=== PATIENT | male | born 1950 | race Caucasian/White ===

== ENCOUNTER 2019-04-23 13:07 | Emergency (ER) | payer MEDICARE, BC ==
[2019-04-23 13:27] VITALS: BP 156/81
--- NOTE | 2019-04-23 13:45 | UC ---
Knee Pain HPI - HPI Summary HPI Summary: Pt was playing golf yesterday and he swung the club and twisted his left knee and had immediate pain. He does not feel like his knee is going to give out and he is walking but with pain and slowly. - History of Current Complaint Chief Complaint: UCLowerExtremity Stated Complaint: LEFT KNEE INJURY Time Seen by Provider: 04/23/19 13:15 Hx Obtained From: Patient Onset/Duration: Sudden Onset, Still Present Severity Initially: Mild Severity Currently: Mild Pain Intensity: 8 Character: Dull, Aching Aggravating Factor(s): Movement, Weight Bearing Alleviating Factor(s): Nothing Associated Signs And Symptoms: Positive: Negative Able to Bear Weight: Yes - Allergies/Home Medications Allergies/Adverse Reactions: Allergies Allergy/AdvReac Type Severity Reaction Status Date / Time codeine Allergy Hallucinati Verified 04/23/19 13:29 ons omeprazole Allergy Coughing Verified 04/23/19 13:29 Home Medications: Home Medications Acetaminophen [Acetaminophen Extra Strength] 1,000 mg PO Q6H PRN 04/23/19 [ History Confirmed 04/23/19] Atorvastatin* [Lipitor*] 80 mg PO 1700 04/23/19 [History Confirmed 04/23/19] Chromium Picolinate 400 mcg PO DAILY 04/23/19 [History Confirmed 04/23/19] Clopidogrel TAB* [Plavix TAB*] 75 mg PO DAILY 04/23/19 [History Confirmed ] Esomeprazole Magnesium [Nexium 24Hr] 20 mg PO DAILY 04/23/19 [History Confirmed 04/23/19] Garlic 580 mg PO DAILY 04/23/19 [History Confirmed 04/23/19] Ibuprofen TAB* [Advil TAB*] 400 mg PO Q6H PRN 04/23/19 [History Confirmed ] PMH/Surg Hx/FS Hx/Imm Hx Previously Healthy: Yes - Surgical History Surgical History: Yes Surgery Procedure, Year, and Place: BACK SURGERY, BILATERAL HERNIA REPAIR, ELBOW SURGERY, gallbladder - Family History Known Family History: Positive: Non-Contributory - Social History Occupation: Retired Alcohol Use: Weekly Substance Use Type: None Smoking Status (MU): Never Smoked Tobacco Review of Systems All Other Systems Reviewed And Are Negative: Yes Musculoskeletal: Positive: Decreased ROM - Mildly limited flexion left knee Is Patient Immunocompromised?: No Physical Exam Triage Information Reviewed: Yes Appearance: Well-Appearing, No Pain Distress, Well-Nourished Vital Signs: Initial Vital Signs Temp 97.6 F 04/23/19 13:16 Pulse 66 04/23/19 13:16 Resp 14 04/23/19 13:16 BP 156/81 04/23/19 13:16 Pulse Ox 100 04/23/19 13:16 Vital Signs Reviewed: Yes Musculoskeletal: Positive: Strength Intact, No Edema, Other: - Able to lift left leg up off exam table, no bruising, erythema, swelling or deformity. Patellar and knee ligaments intact, knee nontender on palpation. Good ROM and strength, able to almost completely flex left leg at the knee Neurological: Positive: Alert, Muscle Tone Normal Psychological Exam: Normal Skin Exam: Normal Knee Pain Course/Dx - Course Course Of Treatment: Left Knee x-ray: FINDINGS: BONE DENSITY: There is diffuse osteopenia. BONES: There is no displaced fracture. JOINTS: There is mild to moderate tricompartmental osteoarthritis. ALIGNMENT: There is no dislocation. SOFT TISSUES: Unremarkable. OTHER FINDINGS: None. IMPRESSION: 1. OSTEOPENIA. 2. OSTEOARTHRITIS. 3. NO ACUTE OSSEOUS INJURY. IF SYMPTOMS PERSIST, RECOMMEND REPEAT IMAGING - Differential Dx/Diagnosis Provider Diagnosis: Strain of left knee Discharge - Sign-Out/Discharge Documenting (check all that apply): Patient Departure All imaging exams completed and their final reports reviewed: Yes - Discharge Plan Condition: Fair Disposition: HOME Patient Education Materials: Knee Pain (ED) Referrals: Hao Maki MD [Primary Care Provider] - Britany Dickinson MD [Medical Doctor] - Additional Instructions: Heat or ice to the sore area intermittently over the next 1-2 days. Ambulate as pain permits. - Billing Disposition and Condition Condition: FAIR Disposition: Home - Attestation Statements Provider Attestation: I was available for consult. This patient was seen by the ROSALBA. The patient was not presented to, seen by, or examined by me. -Louie
== END 2019-04-23 14:32 | disposition home or self-care (01) ==
LOC: UCCORT 13:07
DX: S83.92XA Sprain of unspecified site of left knee, initial encounter (principal); X50.1XXA Overexertion from prolonged static or awkward postures, initial encounter; Y93.53 Activity, golf; Y92.39 Other specified sports and athletic area as the place of occurrence of the external cause
CPT/HCPCS: 99201; G0463